=== PATIENT | male | born 1985 | race Caucasian/White ===

== ENCOUNTER 2019-12-13 21:48 | Emergency (ER) | payer SELFPAY ==
[2019-12-13 21:52] VITALS: BP 155/111; PULSE 107; RESP 20; TEMP 36.6; O2SAT 98
--- NOTE | 2019-12-13 22:03 | ED.HEATRA ---
HPI - Head Injury General Chief complaint: Head Injury Stated complaint: LACERATION Time Seen by Provider: 12/13/19 21:57 Source: patient and RN notes reviewed Mode of arrival: other Limitations: no limitations History of Present Illness HPI Narrative: Pt is a 34 y/o male who presents to the ED with c/o a head injury to his left eye brow that occurred earlier this afternoon. Pt notes that he was remodeling his house and a cabinet fell on his face. Pt denies LOC. Pt states that he used a wet cold towel to apply pressure to his face. He denies taking any pain medication. Pt denies other injuries. He states that he feels like something is rubbing against his eye. Pt reports a headache, but denies vomiting, dizziness, numbness, neck pain, and vision changes. MD Complaint: head injury Mechanism of Injury: other (cabinet fell on face) Place: home Loss of Consciousness: no Location of injury: face Other Injuries: none Associated symptoms: other (headache) Related Data Allergies Allergy/AdvReac Type Severity Reaction Status Date / Time morphine Allergy Unknown Verified 01/18/17 03:05 Review of Systems Review of Systems: All systems reviewed & are unremarkable except as noted in HPI and below Eyes: Eyes: Denies change in vision Gastrointestinal: Gastrointestinal: Denies vomiting Musculoskeletal: Musculoskeletal: Denies neck pain Neurologic: Denies dizziness, Denies syncope and Reports headache(s) [facility] Past Medical History Medical History (Updated 12/14/19 @ 00:00 by Rylee Yi) Ruptured lumbar disc Surgical History Surgical History (Updated 12/13/19 @ 22:15 by Sherly Campbell) H/O myringotomy H/O spinal fusion L2-4 Social History Social History (Updated 12/13/19 @ 22:15 by Sherly Campbell) Smoking packs per day: 1.5 Smoking cigarettes per day: 30.0 Smoking status: Current every day smoker Tobacco type: cigarettes Second hand tobacco smoke exposure: Yes Exam Narrative: Exam Narrative: GENERAL: Well-appearing, well-nourished, and in no acute distress. HEAD: Normocephalic, atraumatic EYES: PERRLA and EOMI, conjunctiva clear without discharge , left eye brow laceration 2cm mild swelling EARS: TM's clear bilaterally without erythema or dullness NOSE: Nares clear, no rhinorrhea or epistaxis THROAT:Mucous membranes moist, Oropharynx normal without erythema, exudate, peritonsillar swelling or fluctuance NECK: Supple, without lymphadenopathy or mass RESPIRATORY: No respiratory distress, Airway patent, Respirations non-labored, Clear to auscultation without rales, rhonchi or wheeze HEART: Regular rate and rhythm. No murmur heard. Normal peripheral pulses. ABDOMEN: Soft, nontender, nondistended, normal active bowel sounds. No masses. No rebound or guarding, No organomegaly. EXTREMITIES: No edema, normal strength with full range of motion. SKIN: Warm, dry, normal color without rash NEURO: Alert and oriented x3. CN 2-12 grossly intact. No focal deficits. PSYCH: Normal mood and affect. Course Course Emergency Course: Patient presented with left eye brow laceration from falling cabinet. He denies LOC or other concerning symptoms that suggest need of CT brain or CT face. He was given tetanus Vital Signs Vital signs: Vital Signs Temperature 97.8 F 12/13/19 21:52 Pulse Rate 107 H 12/13/19 21:52 Respiratory Rate 20 12/13/19 21:52 Blood Pressure 155/111 H 12/13/19 21:52 Pulse Oximetry 98 12/13/19 21:52 Temperature 97.8 F 12/13/19 21:52 Pulse Rate 84 12/13/19 23:21 Respiratory Rate 16 12/13/19 23:21 Blood Pressure 118/85 12/13/19 23:21 Pulse Oximetry 100 12/13/19 23:21 Procedures Laceration Laceration 1: Date: 12/13/19 Time: 23:09 Site: face (left eye brow laceration) Side (If applicable): left Size (cm): 2 Description: linear and clean Depth: simple, single layer Local Anesthetic: lidocaine
[2019-12-13] MEDS: TETANUS,DIPHTHERIA,AC PERTUSSIS ADULT 0.5 ML (ADACEL) IM (22:51)
[2019-12-13] MEDS: IBUPROFEN 600 MG TABLET PO (22:53)
[2019-12-13 22:56] VITALS: O2SAT 100
[2019-12-13 23:21] VITALS: BP 118/85; PULSE 84; RESP 16; O2SAT 100
== END 2019-12-13 23:21 | disposition home or self-care (01) ==
PROVIDERS: Emergency Provider General Practice
DX: S01.112A Laceration without foreign body of left eyelid and periocular area, initial encounter (principal); Z23 Encounter for immunization; F17.210 Nicotine dependence, cigarettes, uncomplicated; W20.8XXA Other cause of strike by thrown, projected or falling object, initial encounter
CPT/HCPCS: 12011; 90471; 90715; 99283; A9270